=== PATIENT | male | born 1990 | race Caucasian/White ===

== ENCOUNTER 2020-06-10 00:39 | Emergency (ER) | payer OTHER ==
[~2020-06-10] VITALS: Ht 175.3 cm; Wt 94.6 kg
[2020-06-10 00:39] VITALS: BP 133/75
[2020-06-10] MEDS ORDERED: AUGMENTIN 875 MG TAB PO ONE (01:30)
[2020-06-10] MEDS ORDERED: KETOROLAC TROMETHAMINE 10 MG TAB PO ONE (01:30)
[2020-06-10] MEDS ORDERED: AUGM875T28 PO (01:32)
[2020-06-10] MEDS ORDERED: IBUP80TA PO (01:32)
[2020-06-10] MEDS ORDERED: LIDO2SOL17 PO (01:33)
== END 2020-06-10 01:57 | disposition home or self-care (01) ==
LOC: M ED 00:39
DX: K04.7 Periapical abscess without sinus (principal); F17.210 Nicotine dependence, cigarettes, uncomplicated

== ENCOUNTER 2021-04-25 23:07 | Emergency (ER) | payer OTHER ==
[~2021-04-25] VITALS: Ht 175.3 cm; Wt 91.0 kg
[~2021-04-25 23:07] MED LIST: AUGM875T28 PO; IBUP80TA PO; LIDO2SOL17 PO
[2021-04-25 23:09] VITALS: BP 137/84
== END 2021-04-25 23:54 | disposition left against medical advice (07) ==
LOC: M ED 23:07
DX: Z53.21 Procedure and treatment not carried out due to patient leaving prior to being seen by health care provider (principal)

== ENCOUNTER 2021-05-12 20:13 | Emergency (ER) | payer OTHER ==
[~2021-05-12] VITALS: Ht 180.3 cm; Wt 91.6 kg
[2021-05-12 20:14] VITALS: BP 142/87
== END 2021-05-12 20:55 | disposition left against medical advice (07) ==
LOC: M ED 20:13
DX: Z53.21 Procedure and treatment not carried out due to patient leaving prior to being seen by health care provider (principal)

== ENCOUNTER 2023-01-05 23:41 | Emergency (ER) | payer OTHER ==
[~2023-01-05] VITALS: Ht 180.3 cm; Wt 108.2 kg
[~2023-01-05 23:41] MED LIST changes: +LIDO15SO PO; -LIDO2SOL17 PO
[2023-01-06] MEDS ORDERED: AMOXICILLIN 500 MG CAP PO ONE (00:45)
[2023-01-06] MEDS ORDERED: IBUPROFEN 800 MG TAB PO ONE (00:45)
[2023-01-06] MEDS ORDERED: IBUP-1022 PO (01:14)
[2023-01-06] MEDS ORDERED: TRAM50TA2 PO (01:14)
[2023-01-06] MEDS ORDERED: AMOX500C PO (01:14)
[2023-01-06 01:24] VITALS: BP 141/75
== END 2023-01-06 01:25 | disposition home or self-care (01) ==
LOC: M ED 23:41
DX: K04.7 Periapical abscess without sinus (principal); Z87.442 Personal history of urinary calculi

== ENCOUNTER 2023-08-28 22:59 | Emergency (ER) | payer OTHER ==
[~2023-08-28] VITALS: Ht 175.3 cm; Wt 99.4 kg
[~2023-08-28 22:59] MED LIST changes: +AMOX500C PO; +IBUP-1022 PO; +TRAM50TA2 PO
[2023-08-28 23:00] VITALS: BP 158/79; TEMP 97.5; O2SAT 98
[2023-08-29] MEDS ORDERED: CLINDAMYCIN 150MG CAPSULE PO ONE (03:20)
[2023-08-29] MEDS ORDERED: IBUPROFEN 800 MG TAB PO ONE (03:20)
[2023-08-29] MEDS ORDERED: traMADol 50 MG TAB (HOME DOSE PACK) PO ONE (03:20)
[2023-08-29] MEDS ORDERED: CLIN150C17 PO (03:23)
[2023-08-29] MEDS ORDERED: IBUP80TA PO (03:23)
[2023-08-29] MEDS ORDERED: TRAM50TA2 PO (03:23)
== END 2023-08-29 03:49 | disposition home or self-care (01) ==
LOC: M ED 22:59
DX: K04.7 Periapical abscess without sinus (principal); K02.9 Dental caries, unspecified

== ENCOUNTER 2023-09-07 13:20 | Emergency (ER) | payer OTHER ==
[~2023-09-07] VITALS: Ht 175.3 cm; Wt 96.8 kg
[~2023-09-07 13:20] MED LIST changes: +CLIN150C17 PO
[2023-09-07] MEDS ORDERED: LIDOCAINE 5% (LIDODERM) PATCH TD ONE (17:10)
[2023-09-07] MEDS ORDERED: KETOROLAC 30 MG/ML 1ML VIAL IM ONE (17:10)
[2023-09-07] MEDS ORDERED: CYCLOBENZAPRINE 5MG TABLET PO ONE (17:10)
[2023-09-07 18:00] VITALS: BP 131/67; TEMP 98; O2SAT 98
[2023-09-07] MEDS ORDERED: KETO10TAB PO (18:25)
[2023-09-07] MEDS ORDERED: CYCL-707 PO (18:25)
[2023-09-07] MEDS ORDERED: LIDO5DIS41 TD (18:25)
== END 2023-09-07 18:40 | disposition home or self-care (01) ==
LOC: M ED 13:20
DX: S39.012A Strain of muscle, fascia and tendon of lower back, initial encounter (principal); F17.210 Nicotine dependence, cigarettes, uncomplicated; Y92.9 Unspecified place or not applicable; Y93.9 Activity, unspecified
CPT/HCPCS: 96372; 99283; J1885

== ENCOUNTER 2023-09-21 21:51 | Emergency (ER) | payer OTHER ==
[~2023-09-21] VITALS: Ht 175.3 cm; Wt 92.0 kg
[~2023-09-21 21:51] MED LIST changes: +CYCL-707 PO; +KETO10TAB PO; +LIDO5DIS41 TD
[2023-09-22 00:48] LABS: BASO # 0.1 10^3/uL (0.0-0.2); BASO % 0.5 % (0.0-1.0); EOS # 0.3 10^3/uL (0.0-0.5); EOS % 1.7 % (0.0-3.0); HEMATOCRIT 47.2 % (42.0-52.0); HEMOGLOBIN 16.7 g/dl (13.5-17.5); LYMPH # 3.5 10^3/uL (1.5-5.0); LYMPH % 23.2 % (24.0-44.0); MEAN CORPUSCULAR HEMOGLOBIN 32.2 pg (27.0-33.0); MEAN CORPUSCULAR HGB CONC 35.4 g/dl (32.0-36.5); MEAN CORPUSCULAR VOLUME 91.1 fl (80.0-96.0); MONO # 1.4 10^3/uL (0.0-0.8); MONO % 9.1 % (2.0-8.0); NEUTROPHILS # 9.9 10^3/uL (1.5-8.5); NEUTROPHILS % 64.6 % (36.0-66.0); PLATELET COUNT, AUTOMATED 261 10^3/uL (150-450); RED BLOOD COUNT 5.18 10^6/uL (4.30-6.10); WHITE BLOOD COUNT 15.2 10^3/uL (4.0-10.0)
[2023-09-22 00:54] LABS: ERYTHROCYTE SEDIMENTATION RATE 30 mm/hr (0-15)
[2023-09-22] MEDS ORDERED: cefTRIAXone SOD 1 GM in D5W MINI-BAG PLUS 50 ML IV ONE (01:00)
[2023-09-22] MEDS ORDERED: KETOROLAC 30 MG/ML 1ML VIAL IV ONE (01:00)
[2023-09-22] MEDS ORDERED: ISOVUE-370 76% 100ML VIAL As Ordered ONE (01:15)
[2023-09-22 01:22] LABS: MONO SCRN NEGATIVE (NEGATIVE)
[2023-09-22] MEDS ORDERED: AMOX500C PO (01:54)
[2023-09-22] MEDS ORDERED: ACET325C5 PO (01:56)
[2023-09-22] MEDS ORDERED: IBUP-1022 PO (01:56)
[2023-09-22] MEDS ORDERED: dexAMETHasone 20MG/5ML VIAL IV ONE (04:10)
[2023-09-22] MEDS ORDERED: AUGM500T34 PO (04:40)
[2023-09-22] MEDS ORDERED: MEDR4PAK PO (04:40)
[2023-09-22 05:05] VITALS: BP 128/72; TEMP 98.4; O2SAT 99
== END 2023-09-22 05:07 | disposition home or self-care (01) ==
LOC: M ED 21:51
DX: J02.0 Streptococcal pharyngitis (principal); B34.8 Other viral infections of unspecified site; F17.210 Nicotine dependence, cigarettes, uncomplicated; Z79.899 Other long term (current) drug therapy
CPT/HCPCS: 70491; 80047; 85025; 85652; 86140; 86308; 87486; 87581; 87633; 87798; 87880; 96365; 96366; 99284; J0696; J1100; J1885; Q9967

== ENCOUNTER 2023-11-24 20:25 | Emergency (ER) | payer OTHER, SELFPAY ==
[~2023-11-24] VITALS: Ht 175.3 cm; Wt 99.2 kg
[~2023-11-24 20:25] MED LIST changes: +ACET325C5 PO; +AUGM500T34 PO; +MEDR4PAK PO
[2023-11-24 21:33] LABS: BASO # 0.1 10^3/uL (0.0-0.2); BASO % 0.5 % (0.0-1.0); EOS # 0.3 10^3/uL (0.0-0.5); EOS % 2.6 % (0.0-3.0); HEMATOCRIT 48.1 % (42.0-52.0); HEMOGLOBIN 17.3 g/dl (13.5-17.5); LYMPH # 3.1 10^3/uL (1.5-5.0); LYMPH % 28.8 % (24.0-44.0); MEAN CORPUSCULAR HEMOGLOBIN 32.6 pg (27.0-33.0); MEAN CORPUSCULAR VOLUME 90.8 fl (80.0-96.0); MONO # 0.7 10^3/uL (0.0-0.8); MONO % 6.8 % (2.0-8.0); NEUTROPHILS # 6.6 10^3/uL (1.5-8.5); NEUTROPHILS % 60.9 % (36.0-66.0); PLATELET COUNT, AUTOMATED 238 10^3/uL (150-450); WHITE BLOOD COUNT 10.8 10^3/uL (4.0-10.0)
[2023-11-24 22:02] LABS: C REACTIVE PROTEIN QUANTITATIV < 0.40 MG/DL (<1.0); ERYTHROCYTE SEDIMENTATION RATE 4 mm/hr (0-15)
[2023-11-24 22:04] LABS: BLOOD UREA NITROGEN 7 MG/DL (9-23); CALCIUM LEVEL 8.3 MG/DL (8.5-10.1); CARBON DIOXIDE LEVEL 24 MMOL/L (20-31); CHLORIDE LEVEL 106 MMOL/L (98-107); CREATININE FOR GFR 0.65 MG/DL (0.70-1.30); GLOMERULAR FILTRATION RATE > 60.0 (>60); GLUCOSE, FASTING 107 MG/DL (60-100); POTASSIUM SERUM 4.1 MMOL/L (3.5-5.1); SODIUM LEVEL 135 MMOL/L (136-145)
[2023-11-24] MEDS: KETOROLAC 30 MG/ML 1ML VIAL IV ONE (22:09)
[2023-11-24] MEDS ORDERED: ACET-897 PO (22:49)
[2023-11-24] MEDS ORDERED: AMOX875T2 PO (22:49)
[2023-11-24 22:54] VITALS: BP 116/64; TEMP 98.2; O2SAT 98
[2023-11-24] MEDS: AUGMENTIN 875 MG TAB PO ONE (23:39)
== END 2023-11-24 23:32 | disposition home or self-care (01) ==
LOC: M ED 20:25
DX: K02.9 Dental caries, unspecified (principal); K08.89 Other specified disorders of teeth and supporting structures; M54.9 Dorsalgia, unspecified; Z87.442 Personal history of urinary calculi; F17.200 Nicotine dependence, unspecified, uncomplicated; Z79.899 Other long term (current) drug therapy; Z79.52 Long term (current) use of systemic steroids
CPT/HCPCS: 80048; 85025; 85652; 86140; 87040; 96374; 99283; J1885

== ENCOUNTER 2025-07-23 05:01 | Observation (INO) | payer MEDICAID, SELFPAY ==
[~2025-07-23] VITALS: Ht 175.3 cm; Wt 103.3 kg
[~2025-07-23 05:01] MED LIST changes: +ACET-897 PO; +AMOX875T2 PO; -IBUP-1022 PO; +IBUP600T42 PO; -LIDO15SO PO; +LIDO15SO8 PO; +LIDO1ADH93 TD; -LIDO5DIS41 TD
[2025-07-23 06:33] LABS: BASO # 0.1 10^3/uL (0.0-0.2); BASO % 0.5 % (0.0-1.0); EOS # 0.1 10^3/uL (0.0-0.5); EOS % 0.7 % (0.0-3.0); LYMPH # 2.0 10^3/uL (1.5-5.0); LYMPH % 10.2 % (24.0-44.0); MONO # 1.1 10^3/uL (0.0-0.8); MONO % 5.6 % (2.0-8.0); NEUTROPHILS # 16.2 10^3/uL (1.5-8.5); NEUTROPHILS % 82.5 % (36.0-66.0); PLATELET COUNT, AUTOMATED 258 10^3/uL (150-450)
[2025-07-23] MEDS: ONDANSETRON 4MG ORAL DISINTEGRATING TAB PO ONE (06:39)
[2025-07-23 06:59] LABS: ALT/SGPT 66 U/L (7.0-40); AST/SGOT 45 U/L (<34); CALCIUM LEVEL 10.0 MG/DL (8.5-10.1); CARBON DIOXIDE LEVEL 27 MMOL/L (20-31); CHLORIDE LEVEL 103 MMOL/L (98-107); CREATININE FOR GFR 1.03 MG/DL (0.70-1.30); GLOMERULAR FILTRATION RATE > 90.0 (>60); POTASSIUM SERUM 4.4 MMOL/L (3.5-5.1); SODIUM LEVEL 141 MMOL/L (136-145)
[2025-07-23 07:18] LABS: KETONE, URINE AUTO RFX NEGATIVE (NEGATIVE); LEUKOCYTE ESTERASE UR AUTO RFX NEGATIVE (NEGATIVE); MUCUS, URINE RFX LARGE (NEGATIVE); NITRITE, URINE AUTO RFX NEGATIVE (NEGATIVE); RBC, URINE AUTO RFX 1 /HPF (0-3); SQUAM EPITHELIAL CELL UR AURFX 0 /HPF (0-6); WBC, URINE AUTO RFX 3 /HPF (0-3)
[2025-07-23] MEDS: SUCRALFATE SUSP 1GM/10ML UD PO ONE (07:26)
[2025-07-23] MEDS: MAALOX 30 ML SUSP *UDC PO ONE (07:26)
[2025-07-23] MEDS: LIDOCAINE VISCOUS 2% SOLN 15 ML UDC PO ONE (07:26)
[2025-07-23] MEDS ORDERED: ISOVUE-370 76% 100 ML VIAL As Ordered ONE (09:33)
[2025-07-23] MEDS ORDERED: HOME MED LIST COMPLETE! XX SCH (12:35)
[2025-07-23] MEDS: NS (Normal Saline) 0.9% 1,000 ML IV ONE (13:35)
[2025-07-23] MEDS: ACETAMINOPHEN *IV* 1,000 MG in IV 1 EA IV ONE (13:36)
[2025-07-23] MEDS ORDERED: ONDANSETRON 4MG/2ML VIAL IV PRN (14:20)
[2025-07-23 15:29] LABS: C REACTIVE PROTEIN QUANTITATIV 0.69 MG/DL (<1.0)
[2025-07-23] MEDS: NS (Normal Saline) 0.9% 1,000 ML IV SCH (16:00)
[2025-07-23 17:08] VITALS: BP 137/78; TEMP 99; O2SAT 92
[2025-07-23 20:00] VITALS: BP 130/80; TEMP 99.1; O2SAT 99
[2025-07-24 04:00] VITALS: BP 108/62; TEMP 97.7; O2SAT 95
[2025-07-24 08:44] LABS: BASO # 0.1 10^3/uL (0.0-0.2); BASO % 0.6 % (0.0-1.0); EOS # 0.2 10^3/uL (0.0-0.5); EOS % 1.4 % (0.0-3.0); LYMPH # 3.1 10^3/uL (1.5-5.0); LYMPH % 28.2 % (24.0-44.0); MONO # 0.9 10^3/uL (0.0-0.8); MONO % 8.7 % (2.0-8.0); NEUTROPHILS # 6.6 10^3/uL (1.5-8.5); NEUTROPHILS % 60.5 % (36.0-66.0); PLATELET COUNT, AUTOMATED 244 10^3/uL (150-450)
[2025-07-24 09:10] LABS: CALCIUM LEVEL 8.6 MG/DL (8.5-10.1); CARBON DIOXIDE LEVEL 25 MMOL/L (20-31); CHLORIDE LEVEL 108 MMOL/L (98-107); CREATININE FOR GFR 0.81 MG/DL (0.70-1.30); GLOMERULAR FILTRATION RATE > 90.0 (>60); MAGNESIUM LEVEL 2.0 MG/DL (1.8-2.4); POTASSIUM SERUM 4.4 MMOL/L (3.5-5.1); SODIUM LEVEL 142 MMOL/L (136-145)
[2025-07-24] MEDS ORDERED: ONDA-83 PO (09:53)
[2025-07-24 12:00] VITALS: BP 136/70; TEMP 97.6; O2SAT 97
[2025-07-24] MEDS ORDERED: ENOXAPARIN 40 MG/0.4 ML SYRINGE (J1650 PER 10MG) SC SCH (21:00)
== END 2025-07-24 13:16 | disposition home or self-care (01) ==
LOC: M ED 05:01 → M ED INP 13:26 → M MS4PR 17:08
PROVIDERS: ADMIT Internal Medicine; ATTEND Internal Medicine
DX: K56.690 Other partial intestinal obstruction (principal); K52.9 Noninfective gastroenteritis and colitis, unspecified; R93.3 Abnormal findings on diagnostic imaging of other parts of digestive tract; Z87.442 Personal history of urinary calculi; M54.9 Dorsalgia, unspecified; F17.210 Nicotine dependence, cigarettes, uncomplicated
CPT/HCPCS: 36415; 74018; 74177; 80048; 80076; 81001; 83605; 83690; 83735; 84145; 85025; 86140; 87040; 87077; 87154; 87186; 87507; 93005; 96365; 96366; 96375; 99284; J0131; J2550; J2765; Q9967